=== PATIENT | male | born 1985 | race Caucasian/White ===

== ENCOUNTER → 2016-12-04 | Outpatient (CLI) | payer BC ==
--- NOTE | 2016-12-04 10:26 | CR ---
EXAMINATION: Right shoulder HISTORY: Pain COMPARISON: MRI dated 11/22/2016 TECHNIQUE: 3 views FINDINGS/IMPRESSION: There is no acute osseous abnormality, dislocation, or fracture identified. Bon e mineralization and joint spaces appear normal.
== END ==
LOC: MW.CHORTHO 07:52
PROVIDERS: ATTEND Orthopaedic Surgery
DX: M25.511 Pain in right shoulder (principal)
CPT/HCPCS: 73030-26-RT; 73030-RT

== ENCOUNTER 2019-12-03 18:48 | Emergency (ER) | payer BC, OTHER ==
--- NOTE | 2019-12-03 19:09 | EDM.PDOC ---
ED HPI GENERAL MEDICAL PROBLEM - General Chief Complaint: Fever Stated Complaint: FLU SYMTOMS Time Seen by Provider: 12/03/19 18:56 Source of Information: Reports: Patient History Limitations: Reports: No Limitations - History of Present Illness INITIAL COMMENTS - FREE TEXT/NARRATIVE: HISTORY OF PRESENT ILLNESS: Patient is a 34-year-old male who states he has been ill since yesterday. Had a fever with a T-max of 104 by home reading. Reports body aches, chills, fatigue, generalized malaise, throat. Had episodes of nonbloody diarrhea. Denies abdominal pain or emesis. No cough or difficulty breathing. No recent travel. Denies any rash. Has a headache but denies any neck stiffness. No urinary symptoms. No known sick contacts. REVIEW OF SYSTEMS: Other than the symptoms associated with the present events, the following is reported with regard to recent health: General: (+) fever. HENT: (-) congestion. Respiratory: (-) cough. Cardiovascular: (-) chest pain. GI: (-) abdominal pain. : (-) urinary complaints. Musculoskeletal: (+) generalized myalgias Endocrine: (+) generalized weakness. Neurological: (-) localized weakness. Skin: (-) rash PAST MEDICAL HISTORY: reviewed as per nursing notes SOCIAL HISTORY: reviewed as per nursing notes, MEDICATIONS: Per nurse's note ALLERGIES: Per nurse's note, reviewed by me PHYSICAL EXAMINATION: GENERALIZED APPEARANCE: well developed, well nourished in no distress VITAL SIGNS: Per nurse's note, reviewed by me SKIN: Warm, dry; (-) cyanosis; (-) rash. HEAD: (-) scalp swelling, (-) tenderness. EYES: (-) conjunctival pallor, (-) scleral icterus. ENMT: (-) stridor; mucous membranes moist. Mild pharyngeal erythema. Uvula midline. No exudate. No phonation changes. No trismus. Airway widely patent. NECK: (-) tenderness, (-) stiffness, no meningismus CHEST AND RESPIRATORY: (-) rales, (-) rhonchi, (-) wheezes; breath sounds equal bilaterally. HEART AND CARDIOVASCULAR: (-) irregularity; (-) murmur, (-) gallop. ABDOMEN AND GI: Soft; (-) tenderness, (-) guarding, (-) rebound, (-) palpable masses, EXTREMITIES: (-) deformity, (-) edema. NEURO AND PSYCH: Alert. Cranial nerves grossly intact; strength symmetric. gait steady DIAGNOSTICS: Influenza: neg COVID-19: pending strep: neg EMERGENCY DEPARTMENT COURSE AND TREATMENT: Patient's condition remained stable during Emergency Department evaluation. Based on history, physical exam, and diagnostic evaluation, the patient has symptoms consistent with acute viral illness and pharyngitis. There is no obvious swelling of the peritonsillar area or abscess. The airway appears patent and respiratory pattern is normal. The patient has no trismus and is tolerating oral food and fluid. There is concern for COVID-19. I gave patient strict quarantine precautions while awaiting testing. He is clinically well appearing, nontoxic, well hydrated with no difficulty breathing. I felt that outpatient management with close followup by the patient's primary care provider in 1-2 days was appropriate. The patient's questions were answered, and discharge precautions and reasons to return to the clinic were discussed. The patient understands to return to the ED if symptoms do not improve as discussed, or if symptoms worsen. PLAN AND FOLLOW-UP: Patient received written and verbal instructions regarding this condition. Return to ED immediately with any new or worsening symptoms. Follow up to be arranged by patient with pcp in 1-2 days for further evaluation. Given discharge precautions. patient expressed verbal understanding. Generalized Pain Score (Numeric/FACES): 8 - Related Data Allergies Allergy/AdvReac Type Severity Reaction Status Date / Time No Known Allergies Allergy Verified 12/03/19 19:05 Home Meds: Home Meds . [No Known Home Meds] 03/28/15 [History] Past Medical History Other Gastrointestinal History: inguinal hernia - Past Surgical History Other Musculoskeletal Surgeries/Procedures:: right rotator surgery ED ROS GENERAL - Review of Systems Review Of Systems: See Below (see dictation) ED EXAM, GENERAL - Physical Exam Exam: See Below (see dictation) Course - Vital Signs Last Recorded V/S: Last Vital Signs Temp 99.2 F 12/03/19 20:11 Pulse 99 12/03/19 20:11 Resp 17 12/03/19 20:11 BP 133/61 12/03/19 19:05 Pulse Ox 95 12/03/19 20:11 - Orders/Labs/Meds Orders: Active Orders 24 hr Category Date Time Status Vital Signs [RC] PER UNIT ROUTINE Care 12/03/19 20:07 Active CORONAVIRUS COVID-19 PCR PHL Stat Lab 12/03/19 19:35 Received CULTURE STREP A CONFIRMATION [RM] Stat Lab 12/03/19 19:35 Results STREP SCRN A RAPID W CULT CONF [RM] Stat Lab 12/03/19 19:35 Results Isolation [COMM] Routine Oth 12/03/19 19:10 Active Departure - Departure Time of Disposition: 20:15 Disposition: Home, Self-Care 01 Condition: Good Clinical Impression: Fever, Pharyngitis, Viral illness - Discharge Information *PRESCRIPTION DRUG MONITORING PROGRAM REVIEWED*: Not Applicable *COPY OF PRESCRIPTION DRUG MONITORING REPORT IN PATIENT ROBYN: Not Applicable Instructions: Pharyngitis, Viral Illness, Adult, Fever, Adult, [id number] Referrals: PCP,Franc [Primary Care Provider] - Sanjeev Valladares [Ordering Only Provider] - 2 Days Forms: ED Department Discharge Additional Instructions: The following information is given to patients seen in the emergency department who are being discharged to home. This information is to outline your options for follow-up care. We provide all patients seen in our emergency department with a follow-up referral. The need for follow-up, as well as the timing and circumstances, are variable depending upon the specifics of your emergency department visit. If you don't have a primary care physician on staff, we will provide you with a referral. We always advise you to contact your personal physician following an emergency department visit to inform them of the circumstance of the visit and for follow-up with them and/or the need for any referrals to a consulting specialist. The emergency department will also refer you to a specialist when appropriate. This referral assures that you have the opportunity for follow-up care with a specialist. All of these measure are taken in an effort to provide you with optimal care, which includes your follow-up. Under all circumstances we always encourage you to contact your private physician who remains a resource for coordinating your care. When calling for follow-up care, please make the office aware that this follow-up is from your recent emergency room visit. If for any reason you are refused follow-up, please contact the [facility] Emergency Department at and asked to speak to the emergency department charge nurse. Sepsis Event Note - Evaluation Sepsis Screening Result: Possible Sepsis Risk - Focused Exam Vital Signs: Vital Signs Temp Pulse Resp BP Pulse Ox 12/03/19 20:11 99.2 F 99 17 95 12/03/19 19:05 98.6 F 143 H 18 133/61 95 Date Exam was Performed: 12/03/19 Time Exam was Performed: 20:15 - My Orders Last 24 Hours: My Active Orders 12/03/19 19:10 Isolation [COMM] Routine 12/03/19 19:35 CORONAVIRUS COVID-19 PCR PHL Stat CULTURE STREP A CONFIRMATION [RM] Stat STREP SCRN A RAPID W CULT CONF [RM] Stat 12/03/19 20:07 Vital Signs [RC] PER UNIT ROUTINE - Assessment/Plan Last 24 Hours: My Active Orders 12/03/19 19:10 Isolation [COMM] Routine 12/03/19 19:35 CORONAVIRUS COVID-19 PCR PHL Stat CULTURE STREP A CONFIRMATION [RM] Stat STREP SCRN A RAPID W CULT CONF [RM] Stat 12/03/19 20:07 Vital Signs [RC] PER UNIT ROUTINE
[2019-12-03 19:37] VITALS: BP 133/61
[2019-12-03 20:12] VITALS: PULSE 99
== END 2019-12-03 20:20 | disposition home or self-care (01) ==
LOC: MW.ED 18:48
DX: J02.9 Acute pharyngitis, unspecified (principal); B34.9 Viral infection, unspecified
CPT/HCPCS: 87081; 87804; 87880-QW; 99283; U0002

== ENCOUNTER 2020-05-25 00:49 | Emergency (ER) | payer BC, OTHER ==
[2020-05-25] MEDS ORDERED: Albuterol 8 GM Inhaler INH ONE (01:47)
--- NOTE | 2020-05-25 01:51 | EDM.PDOC ---
ED HPI GENERAL MEDICAL PROBLEM - General Chief Complaint: Fever Stated Complaint: FEVER Time Seen by Provider: 05/25/20 01:42 - History of Present Illness INITIAL COMMENTS - FREE TEXT/NARRATIVE: History of present illness: [] 3 days ago the patient began to have fatigue. He also has cough. He has fever and chills. He is lost his appetite. He generally has just lost his energy. He is not a smoker and has no history of asthma. Review of systems: As per history of present illness and below otherwise all systems reviewed and negative. Past medical history: As per history of present illness and as reviewed below otherwise noncontributory. Surgical history: As per history of present illness and as reviewed below otherwise noncontributory. Social history: No reported history of drug or alcohol abuse. Family history: As per history of present illness and as reviewed below otherwise noncontributory. Physical exam: Constitutional - well developed, well-nourished and in no acute distress HEENT - normocephalic, no evidence of trauma - external nose and mouth normal - no mass in neck and no JVD - mucosae moist EYES - full EOM, PERRL, no icterus - no evidence of inflammation, injection, or drainage Respiratory - no respiratory distress, equal bilateral expansion, scattered wheezes throughout on both lung hedrick. Cardiovascular - Regular Rhythm with S1 and S2 appreciated and no murmur, gallop or rub. GI - abdomen soft without distension or organomegaly - normal bowel sounds - no guard or rebound Musculoskeletal no gross deformity of long bones or joints - no tenderness, swelling or edema Neurologic - Alert and oriented times four - CN II-XII grossly intact - motor sensory and coordination symmetrically normal Psychiatric - appropriate mood and affect with normal thought content Hematologic - No petechiae or purpura - mucosa appropriate color and sclera not pale - normal nail bed color and refill Integument - no rash or evidence of trauma - normal turgor Diagnostics: [] Therapeutics: [] Impression: [] Plan: [] Definitive disposition and diagnosis as appropriate pending reevaluation and review of above. abdominal Pain Score (Numeric/FACES): 7 - Related Data Allergies Allergy/AdvReac Type Severity Reaction Status Date / Time No Known Allergies Allergy Verified 05/25/20 01:51 Home Meds: Home Meds Buprenorphine HCl/Naloxone HCl [Suboxone 4 mg-1 mg Sl Film] 1 each SL 05/25/20 [History] Past Medical History Other Gastrointestinal History: inguinal hernia - Infectious Disease History Infectious Disease History: Reports: Chicken Pox - Past Surgical History Other Musculoskeletal Surgeries/Procedures:: right rotator surgery Social & Family History - Caffeine Use Caffeine Use: Reports: Tea ED ROS GENERAL - Review of Systems Review Of Systems: Comprehensive ROS is negative, except as noted in HPI. ED EXAM, GENERAL - Physical Exam Exam: See Below Free Text/Narrative:: My physical exam as in the HPI Course - Vital Signs Text/Narrative:: Oh 2:19 AM patient's lungs are clear now but he is having epigastric pain. See orders Last Recorded V/S: Last Vital Signs Temp 99.1 F 05/25/20 01:52 Pulse 89 05/25/20 01:52 Resp 18 05/25/20 01:52 BP 125/95 H 05/25/20 01:52 Pulse Ox 97 05/25/20 01:52 - Orders/Labs/Meds Orders: Active Orders 24 hr Category Date Time Status RT Post Treatment Assessment [RC] Click to Edit Care 05/25/20 01:48 Active RT Post Treatment Assessment [RC] Click to Edit Care 05/25/20 02:11 Active RT Pre-Treatment Assessment [RC] Click to Edit Care 05/25/20 01:48 Active RT Pre-Treatment Assessment [RC] Click to Edit Care 05/25/20 02:11 Active CXR [Chest 1V Frontal] [CR] Stat Exams 05/25/20 01:47 Taken CORONAVIRUS COVID-19 PCR PHL Stat Lab 05/25/20 01:48 Ordered Albuterol [Ventolin HFA] Med 05/25/20 02:10 Active 18 gm INH Q4H PRN Pantoprazole [ProTONIX] Med 05/25/20 21:00 Active 40 mg PO BEDTIME Medication Orders Albuterol (Ventolin Hfa) 18 gm INH Q4H PRN PRN Reason: Wheezing Pantoprazole Sodium (Protonix) 40 mg PO BEDTIME MENDEZ Labs: Laboratory Tests 05/25/20 Range/Units 02:15 SARS CoV-2 RNA Rapid HERLINDA NEGATIVE (NEGATIVE) Meds: Medications Generic Name Dose Route Start Last Admin Trade Name Freq PRN Reason Stop Dose Admin Albuterol 18 gm 05/25/20 02:10 Ventolin Hfa INH Q4H PRN Wheezing Pantoprazole Sodium 40 mg 05/25/20 21:00 Protonix PO BEDTIME MENDEZ Discontinued Medications Generic Name Dose Route Start Last Admin Trade Name Freq PRN Reason Stop Dose Admin Albuterol 18 gm 05/25/20 01:47 05/25/20 02:17 Ventolin Hfa INH 05/25/20 01:48 2 puff ONETIME ONE Administration Albuterol Confirm 05/25/20 02:06 05/25/20 02:16 Ventolin Hfa Administered 05/25/20 02:07 Not Given Dose 18 gm .ROUTE .STK-MED ONE Al Hydroxide/Mg Hydroxide 15 0 ml 05/25/20 02:14 05/25/20 02:20 ml/ Lidocaine HCl 5 ml PO 05/25/20 02:15 1 each ONETIME ONE Administration Departure - Departure Time of Disposition: 03:00 Disposition: Home, Self-Care 01 Condition: Good Clinical Impression: Bronchitis, Gastritis - Discharge Information Instructions: Gastritis, Adult, [id number], How to Use a Metered Dose Inhaler, Fever, Adult, [id number] Referrals: PCP,None [Primary Care Provider] - Forms: ED Department Discharge Additional Instructions: Please self qurantine until state lab tests come back. They are more accurate. Please use Prilosec or Protonix [id number] for your stomach pain as well as an acids. Return if worse. His inhaler up to every 4 hours for wheezing or shortness of breath but if you need it more than that return [facility] [address] [place] [id number] [address] [address] The following information is given to patients seen in the emergency department who are being discharged to home. This information is to outline your options for follow-up care. We provide all patients seen in our emergency department with a follow-up referral. The need for follow-up, as well as the timing and circumstances, are variable depending upon the specifics of your emergency department visit. If you don't have a primary care physician on staff, we will provide you with a referral. We always advise you to contact your personal physician following an emergency department visit to inform them of the circumstance of the visit and for follow-up with them and/or the need for any referrals to a consulting specialist. The emergency department will also refer you to a specialist when appropriate. This referral assures that you have the opportunity for follow-up care with a specialist. All of these measure are taken in an effort to provide you with optimal care, which includes your follow-up. Under all circumstances we always encourage you to contact your private physician who remains a resource for coordinating your care. When calling for follow-up care, please make the office aware that this follow-up is from your recent emergency room visit. If for any reason you are refused follow-up, please contact the [facility] Emergency Department at and asked to speak to the emergency department charge nurse. Sepsis Event Note (ED) - Focused Exam Vital Signs: Vital Signs Temp Pulse Resp BP Pulse Ox 05/25/20 01:52 99.1 F 89 18 125/95 H 97 - My Orders Last 24 Hours: My Active Orders 05/25/20 01:47 CXR [Chest 1V Frontal] [CR] Stat 05/25/20 01:48 RT Post Treatment Assessment [RC] Click to Edit RT Pre-Treatment Assessment [RC] Click to Edit CORONAVIRUS COVID-19 PCR PHL Stat 05/25/20 02:10 Albuterol [Ventolin HFA] 18 gm INH Q4H PRN 05/25/20 02:11 RT Post Treatment Assessment [RC] Click to Edit RT Pre-Treatment Assessment [RC] Click to Edit 05/25/20 21:00 Pantoprazole [ProTONIX] 40 mg PO BEDTIME - Assessment/Plan Last 24 Hours: My Active Orders 05/25/20 01:47 CXR [Chest 1V Frontal] [CR] Stat 05/25/20 01:48 RT Post Treatment Assessment [RC] Click to Edit RT Pre-Treatment Assessment [RC] Click to Edit CORONAVIRUS COVID-19 PCR PHL Stat 05/25/20 02:10 Albuterol [Ventolin HFA] 18 gm INH Q4H PRN 05/25/20 02:11 RT Post Treatment Assessment [RC] Click to Edit RT Pre-Treatment Assessment [RC] Click to Edit 05/25/20 21:00 Pantoprazole [ProTONIX] 40 mg PO BEDTIME
[2020-05-25] MEDS ORDERED: Albuterol HFA 18 Gm Inhaler ONE (02:06)
[2020-05-25] MEDS ORDERED: Albuterol 8 GM Inhaler INH PRN (02:10)
[2020-05-25] MEDS ORDERED: Alum Hydrox/Mag Hydrox/Simeth 15 ML, Lidocaine 2% 5 ML PO ONE ×2 (02:14)
[2020-05-25 03:17] VITALS: BP 139/97; PULSE 83
--- NOTE | 2020-05-25 03:25 | CR ---
INDICATION: Wheezing TECHNIQUE: Portable upright AP view of the chest COMPARISON: None FINDINGS: The lungs are clear. There is no sizable pleural effusion or pneumothorax. The cardiomediastinal silhouette is normal. The visualized osseous structures are unremarkable. IMPRESSION: No acute intrathoracic process. Dictated by Todd Monaco MD @ May 25 2020 3:24AM Signed by Dr. Todd Monaco @ May 25 2020 3:24AM
[2020-05-25] MEDS ORDERED: Pantoprazole 40 MG Tab.CR PO SCH (21:00)
== END 2020-05-25 03:16 | disposition home or self-care (01) ==
LOC: MW.ED 00:49
DX: K29.70 Gastritis, unspecified, without bleeding (principal); J40 Bronchitis, not specified as acute or chronic; Z20.828 Contact with and (suspected) exposure to other viral communicable diseases
CPT/HCPCS: 71045; 87635; 99284; A9270; 99283; J3535-GY; U0002